=== PATIENT | male | born 1950 | race Caucasian/White ===

== ENCOUNTER 2016-12-31 07:00 | Inpatient (IN) | payer MEDICARE, OTHER ==
--- OUTSIDE RECORDS SUMMARY | 2016-12-31 09:38 | XMS REPORT | Continuity of Care Document ---
:1950 Author Organization [facility] ([facility]) Address [address] [place] [address] Phone [phone] Care Team Providers Name Role Phone Mehul Johnson Primary Care Provider [phone] Source Comments This disclosure is being made pursuant to the Care Everywhere program, applicable federal and state laws, and may not contain all informaitonavailable regarding this patient.[facility] ([facility]) Active Allergies and Adverse Reactions No Known Allergies Current Medications Prescription Sig. Disp. Refills Start Date End Date Status irbesartan (AVAPRO) 300 mg Take 300 mg by Active tablet mouth at bedtime. simvastatin 20 mg tablet Take 20 mg by Active mouth every evening. amLODIPine 10 mg tablet Take 10 mg by Active mouth daily. FUROSEMIDE 40 mg tablet 40 mg Every 04/17/2014 Active morning. METOPROLOL succinate 100 100 mg daily. 04/17/2014 Active mg XL tablet SPIRONOLACTONE 25 mg Take 25 mg by 03/29/2014 Active tablet mouth daily. metFORMIN 1,000 mg tablet Take 1,000 mg by Active mouth 2 times daily. bimatoprost (LUMIGAN) 0.01 instill 1 Drop Active % ophthalmic solution onto both eyes every evening. brimonidine 0.15 % instill 1 Drop Active ophthalmic solution onto both eyes 2 times daily. Active Problems Problem Noted Date Respiratory insufficiency following shock, trauma, or surgery 09/27/2014 Overview: Pulmonary toilet Wean oxygen as tolerated Atelectasis of both lungs 09/27/2014 Overview: Pulmonary toilet Hypertension 09/27/2014 Overview: Restart home meds monitoring Diabetes mellitus 09/27/2014 Overview: Holding metformin. On SSI. Monitoring glucoses History of smoking 09/27/2014 Overview: Quit. Monitor respiratory status. CHF (congestive heart failure) 09/27/2014 Overview: Monitoring on tele. Acute CHF due to fluid overload. Treated at local hospital. LVEF 60%. 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 MANAGER Pulse 79 10/12/2014 10:25 AM ASSISTANT MAINTENANCE MANAGER Temperature 37 C (98.6 F) 10/12/2014 10:25 AM ASSISTANT MAINTENANCE MANAGER Respiratory Rate 18 09/30/2014 8:57 AM ASSISTANT MAINTENANCE MANAGER Height 2.007 m (6' 7") 09/26/2014 4:20 PM ASSISTANT MAINTENANCE MANAGER Weight 169.6 kg (373 lb 14.4 oz) 10/12/2014 10:25 AM ASSISTANT MAINTENANCE MANAGER Body Mass Index 42.1 10/12/2014 10:25 AM ASSISTANT MAINTENANCE MANAGER Oxygen Saturation 97% 10/12/2014 10:25 AM ASSISTANT MAINTENANCE MANAGER Plan of Care Health Maintenance Due Date Last Done Comments HCV Screening 1950 Hepatitis B Vaccine (1 of 3 - Primary Series) 1950 Tdap Vaccine 1959 Diabetic: Hdl 1966 DIABETIC: Hemoglobin A1C 1966 Diabetic: Ldl 1966 DIABETIC: Microalbumin 1966 DIABETIC: Triglycerides 1966 Td Vaccine 1966 Colonoscopy 1998 Prostate Cancer Screening 1998 Zoster Vaccine 2008 Pneumococcal Vaccine (1 of 2 - PCV13) 2013 DIABETIC: Foot Exam 09/27/2014 DIABETIC: Retinal Eye Exam 09/27/2014 DIABETIC: Cholesterol 08/31/2015 08/31/2014 Influenza Vaccine: Seasonal (#1) 06/02/2016 09/02/2014 Results from Last 3 Months Not on file
[2016-12-31] MEDS ORDERED: ALBUTEROL SULFATE/IPRATROPIUM 3 ML NEBU IH PRN (09:40)
[2016-12-31 10:08] LABS: Hematocrit 40.2 % (42.0-52.0); Hemoglobin 12.9 gm/dL (13.5-18.0); Mean Corpuscular Hemoglobin 27.3 pg (27-31); Mean Corpuscular Hgb Conc 32.1 g/dl (32-36); Mean Platelet Volume 9.1 fl (6.0-9.5); Neutrophil # 8.3 K/mm3 (1.3-6.0); Platelet Count 277 K/mm3 (150-450); Red Blood Count 4.73 M/mm3 (4.7-6.0); Red Cell Distribution Width 13.5 % (11.5-14.0); White Blood Count 10.7 K/mm3 (4.0-10.5)
[2016-12-31 10:13] LABS: Urine Bilirubin Negative (NEGATIVE); Urine Blood 25 /ul (NEGATIVE); Urine Ketone Negative (NEGATIVE); Urine Nitrite Negative (NEGATIVE); Urine Protein 100 mg/dL (NEGATIVE); Urine Specific Gravity >=1.030 SP.GR. (1.005-1.030); Urine Urobilinogen Normal (NORMAL)
[2016-12-31 10:20] LABS: Urine Appearance Clear; Urine Bacteria TRACE; Urine Color Yellow; Urine RBC TRACE /hpf (0-5); Urine WBC None Seen /hpf (0-5)
[2016-12-31 10:21] LABS: Urine Fine Granular Cast 0-5 /LPF
[2016-12-31 10:27] LABS: Albumin * 3.3 gm/dl (3.4-5.0); Anion Gap 13.5 mmol/L (6.8-13.8); BUN/Creatinine Ratio 13.8 (9.0-21.6); Bilirubin, Total 0.5 mg/dL (0.0-1.1); Ca. Corrected For Albumin 8.9 mg/dL (8.4-10.2); Calcium * 8.7 mg/dL (7.9-10.9); Carbon Dioxide 24.2 mmol/L (24-32.6); Potassium 4.7 mmol/L (3.4-4.6)
[2016-12-31] MEDS: PANTOPRAZOLE SODIUM 40 MG TABLET.EC PO SCH (10:58)
[2016-12-31] MEDS: HYDROCHLOROTHIAZIDE 25 MG TABLET PO SCH (10:58)
[2016-12-31] MEDS ORDERED: ENOXAPARIN SODIUM 40 MG/0.4 ML SYRG SC SCH (11:00)
[2016-12-31] MEDS: CODEINE PHOSPHATE/GUAIFENESIN 5 ML UDC PO PRN ×2 (11:04→18:39)
[2016-12-31] MEDS: METHYLPREDNISOLONE SOD SUCC 80 MG in WATER FOR INJ.,BACTERIOSTATIC 0 ML IV SCH ×2 (13:47→18:33)
[2016-12-31] MEDS: oxyCODONE HCL/ACETAMINOPHEN 1 TAB TABLET PO PRN (18:39)
[2016-12-31] MEDS: FLUTICASONE/SALMETEROL 14 PUFF DISK.W.DEV IH SCH (20:10)
[2016-12-31] MEDS: ASPIRIN 325 MG TABLET.DR PO SCH (20:10)
[2016-12-31] MEDS: MONTELUKAST SODIUM 10 MG TABLET PO SCH (20:10)
[2016-12-31] MEDS: GABAPENTIN 300 MG CAPSULE PO SCH (20:11)
[2016-12-31] MEDS: SIMVASTATIN 20 MG TABLET PO SCH (20:11)
[2017-01-01] MEDS: METHYLPREDNISOLONE SOD SUCC 80 MG in WATER FOR INJ.,BACTERIOSTATIC 0 ML IV SCH ×5 (00:59→23:55)
[2017-01-01 06:04] LABS: Hematocrit 39.5 % (42.0-52.0); Hemoglobin 12.6 gm/dL (13.5-18.0); Mean Cell Volume 82.8 fl (78-100); Mean Corpuscular Hemoglobin 26.4 pg (27-31); Mean Corpuscular Hgb Conc 31.9 g/dl (32-36); Mean Platelet Volume 9.6 fl (6.0-9.5); Neutrophil # 13.4 K/mm3 (1.3-6.0); Neutrophil % 93.2 % (42-75.0); Platelet Count 288 K/mm3 (150-450); Red Blood Count 4.77 M/mm3 (4.7-6.0); Red Cell Distribution Width 13.2 % (11.5-14.0); White Blood Count 14.3 K/mm3 (4.0-10.5)
[2017-01-01 06:19] LABS: BUN/Creatinine Ratio 16.4 (9.0-21.6)
[2017-01-01 06:20] LABS: Albumin * 3.2 gm/dl (3.4-5.0); Anion Gap 14.1 mmol/L (6.8-13.8); Bilirubin, Total 0.3 mg/dL (0.0-1.1); Ca. Corrected For Albumin 9.3 mg/dL (8.4-10.2); Carbon Dioxide 24.4 mmol/L (24-32.6); Potassium 4.5 mmol/L (3.4-4.6); Total Protein 7.9 gm/dL (6.2-8.2)
[2017-01-01] MEDS: PANTOPRAZOLE SODIUM 40 MG TABLET.EC PO SCH (06:39)
[2017-01-01] MEDS: oxyCODONE HCL/ACETAMINOPHEN 1 TAB TABLET PO PRN (06:40)
[2017-01-01] MEDS: CODEINE PHOSPHATE/GUAIFENESIN 5 ML UDC PO PRN (06:40)
[2017-01-01] MEDS: LOSARTAN POTASSIUM 50 MG TABLET PO SCH (08:38)
[2017-01-01] MEDS: SPIRONOLACTONE 25 MG TABLET PO SCH (08:38)
[2017-01-01] MEDS: ASPIRIN 325 MG TABLET.DR PO SCH ×2 (08:38→20:46)
[2017-01-01] MEDS: FLUTICASONE/SALMETEROL 14 PUFF DISK.W.DEV IH SCH ×2 (08:38→20:46)
[2017-01-01] MEDS: METOPROLOL TARTRATE 100 MG TABLET PO SCH (08:38)
[2017-01-01] MEDS: GABAPENTIN 300 MG CAPSULE PO SCH ×2 (08:39→20:47)
[2017-01-01] MEDS: amLODIPine BESYLATE 10 MG TABLET PO SCH (08:39)
[2017-01-01] MEDS: TIOTROPIUM BROMIDE 5 CAP INHALER IH SCH (08:40)
[2017-01-01] MEDS: AZITHROMYCIN 250 MG TABLET PO SCH (08:44)
[2017-01-01] MEDS ORDERED: TIOTROPIUM BROMIDE 5 CAP INHALER IH SCH (09:00)
[2017-01-01] MEDS ORDERED: BENZONATATE 100 MG CAPSULE PO PRN (09:10)
--- NOTE | 2017-01-01 09:20 | PN ---
Subjective - Date and Time Seen Date: 01/01/17 Time: 09:15 Subjective Narrative: Frequent dry cough and shortness of breath associated with severe chest pain Objective - Review of Systems Generalized/Overall Review: Reports: Weakness EENTM: Reports: No Symptoms Reported Respiratory: Reports: Cough, Shortness of Breath Cardiac: Reports: No Symptoms Reported Abdominal: Reports: No Symptoms Reported Genitourinary Symptoms: Reports: No Symptoms Reported Musculoskeletal Complaints: Reports: No Symptoms Reported Neurological: Reports: No Symptoms Reported Skin: Reports: No Symptoms Reported - Vitals Vitals: Last Vital Signs Temp 36.9 C 01/01/17 07:43 Pulse 100 01/01/17 08:39 Resp 28 H 01/01/17 07:43 BP 141/78 01/01/17 08:39 Pulse Ox 93 01/01/17 07:43 - Abnormal Lab Findings Abnormal Lab Findings: Abnormal Lab Results 12/31/16 12/31/16 12/31/16 Range/Units 09:57 09:57 09:57 WBC 10.7 H (4.0-10.5) K/mm3 Hgb 12.9 L (13.5-18.0) gm/dL Hct 40.2 L (42.0-52.0) % MCH (27-31) pg MCHC (32-36) g/dl MPV (6.0-9.5) fl Immature Gran % (Auto) (0.001-0.429) % Immature Gran # (Auto) (0.000-0.0310) K/mm3 Neutrophils % 78.0 H (42-75.0) % Lymphocytes % 5.3 L (20-51) % Monocytes % 10.4 H (0.0-9) % Eosinophils % 5.1 H (0.0-3.0) % Neutrophils # 8.3 H (1.3-6.0) K/mm3 Lymphocytes # 0.6 L (1.5-3.5) k/mm3 Monocytes # 1.1 H (0.0-1.0) k/mm3 ESR 65 H (0-10) mm/hr pO2 (83.0-108.0) mmHg Total CO2 (19.0-24.0) mmol/L ABG O2 Sat (Measured) (94.0-98.0) % Potassium 4.7 H (3.4-4.6) mmol/L Anion Gap (6.8-13.8) mmol/L BUN (6-23) mg/dL Creatinine 1.59 H (0.4-1.4) mg/dL Est GFR (Non-Af Amer) 46 L (60-130) mL/min Random Glucose 136 H (70-110) mg/dL ALT (19-67) U/L B-Natriuretic Peptide 750 H (5-350) pg/mL Albumin 3.3 L (3.4-5.0) gm/dl Urine Protein (NEGATIVE) mg/dL Urine Blood (NEGATIVE) /ul Fine Granular Casts (NONE) /LPF 12/31/16 12/31/16 01/01/17 Range/Units 10:02 10:24 05:11 WBC 14.3 H D (4.0-10.5) K/mm3 Hgb 12.6 L (13.5-18.0) gm/dL Hct 39.5 L (42.0-52.0) % MCH 26.4 L (27-31) pg MCHC 31.9 L (32-36) g/dl MPV 9.6 H (6.0-9.5) fl Immature Gran % (Auto) 1.30 H (0.001-0.429) % Immature Gran # (Auto) 0.19 H (0.000-0.0310) K/mm3 Neutrophils % 93.2 H (42-75.0) % Lymphocytes % 3.7 L (20-51) % Monocytes % (0.0-9) % Eosinophils % (0.0-3.0) % Neutrophils # 13.4 H (1.3-6.0) K/mm3 Lymphocytes # 0.5 L (1.5-3.5) k/mm3 Monocytes # (0.0-1.0) k/mm3 ESR (0-10) mm/hr pO2 54.3 L (83.0-108.0) mmHg Total CO2 25.6 H (19.0-24.0) mmol/L ABG O2 Sat (Measured) 88.2 L (94.0-98.0) % Potassium (3.4-4.6) mmol/L Anion Gap (6.8-13.8) mmol/L BUN (6-23) mg/dL Creatinine (0.4-1.4) mg/dL Est GFR (Non-Af Amer) (60-130) mL/min Random Glucose (70-110) mg/dL ALT (19-67) U/L B-Natriuretic Peptide (5-350) pg/mL Albumin (3.4-5.0) gm/dl Urine Protein 100 H (NEGATIVE) mg/dL Urine Blood 25 H (NEGATIVE) /ul Fine Granular Casts 0-5 H (NONE) /LPF 01/01/17 01/01/17 01/01/17 Range/Units 05:11 05:11 05:11 WBC (4.0-10.5) K/mm3 Hgb (13.5-18.0) gm/dL Hct (42.0-52.0) % MCH (27-31) pg MCHC (32-36) g/dl MPV (6.0-9.5) fl Immature Gran % (Auto) (0.001-0.429) % Immature Gran # (Auto) (0.000-0.0310) K/mm3 Neutrophils % (42-75.0) % Lymphocytes % (20-51) % Monocytes % (0.0-9) % Eosinophils % (0.0-3.0) % Neutrophils # (1.3-6.0) K/mm3 Lymphocytes # (1.5-3.5) k/mm3 Monocytes # (0.0-1.0) k/mm3 ESR 52 H (0-10) mm/hr pO2 (83.0-108.0) mmHg Total CO2 (19.0-24.0) mmol/L ABG O2 Sat (Measured) (94.0-98.0) % Potassium (3.4-4.6) mmol/L Anion Gap 14.1 H (6.8-13.8) mmol/L BUN 24 H (6-23) mg/dL Creatinine 1.46 H (0.4-1.4) mg/dL Est GFR (Non-Af Amer) 51 L (60-130) mL/min Random Glucose 202 H D (70-110) mg/dL ALT 18 L (19-67) U/L B-Natriuretic Peptide 2598 H (5-350) pg/mL Albumin 3.2 L (3.4-5.0) gm/dl Urine Protein (NEGATIVE) mg/dL Urine Blood (NEGATIVE) /ul Fine Granular Casts (NONE) /LPF - Exam Constitutional: Present: Alert, Oriented x3, Cooperative Respiratory: Present: crackles Cardiovascular/Chest: Present: regular rate, rhythm, systolic murmur Abdomen: Present: soft, nontender Extremity: Present: no pedal edema Skin Exam: Present: normal color Neurologic: 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: 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-XII nml as tested Appearance: Present: appropriate appearance Assessment/Plan - Problems/Diagnosis (1) Congestive heart failure (CHF) Problem: Acute Narrative: Chest x-ray showed mild increase in right pleural effusion BNP has increased from 800 to 2000 I will give him 80 mg of IV Lasix (2) COPD (chronic obstructive pulmonary disease) Problem: Chronic Narrative: Will continue IV antibiotic and Solu-Medrol (3) Thymus cancer Problem: Acute Narrative: Recurrence of the thymus cancer with lung metastasis and pleural effusion Case discussed with the patient and his oncologist will proceed with thoracentesis
[2017-01-01] MEDS ORDERED: FUROSEMIDE 10 MG/ML VIAL IV ONE (09:40)
[2017-01-01 09:54] LABS: INR 0.98 INR (0.90-1.10); Prothrombin Time (Patient) 10.2 Seconds (9.4-11.4)
[2017-01-01] MEDS: HYDROCHLOROTHIAZIDE 25 MG TABLET PO SCH (10:38)
[2017-01-01] MEDS: NYSTATIN 15 APPL BTL TP SCH ×2 (16:40→20:46)
[2017-01-01] MEDS: NYSTATIN 30 APPL TUBE TP SCH ×2 (16:40→20:46)
[2017-01-01] MEDS: MONTELUKAST SODIUM 10 MG TABLET PO SCH (20:47)
[2017-01-01] MEDS: SIMVASTATIN 20 MG TABLET PO SCH (20:47)
[2017-01-01] MEDS ORDERED: PHENOL 180 SPRAY BTL MM PRN (23:37)
[2017-01-02 06:09] LABS: Hematocrit 37.8 % (42.0-52.0); Hemoglobin 12.1 gm/dL (13.5-18.0); Mean Cell Volume 82.9 fl (78-100); Mean Corpuscular Hemoglobin 26.5 pg (27-31); Mean Platelet Volume 9.8 fl (6.0-9.5); Platelet Count 312 K/mm3 (150-450); Red Blood Count 4.56 M/mm3 (4.7-6.0); Red Cell Distribution Width 13.2 % (11.5-14.0); White Blood Count 27.4 K/mm3 (4.0-10.5)
[2017-01-02 06:11] LABS: Total Cells Counted 100
[2017-01-02 06:14] LABS: Prothrombin Time (Patient) 10.4 Seconds (9.4-11.4)
[2017-01-02 06:23] LABS: Anion Gap 13.9 mmol/L (6.8-13.8); BUN/Creatinine Ratio 24.7 (9.0-21.6); Bilirubin, Total 0.3 mg/dL (0.0-1.1); Ca. Corrected For Albumin 9.3 mg/dL (8.4-10.2); Calcium * 8.8 mg/dL (7.9-10.9); Carbon Dioxide 25.1 mmol/L (24-32.6); Total Protein 7.4 gm/dL (6.2-8.2)
[2017-01-02 06:30] LABS: Band 8 % (0-2.0); Lymphocyte 4 % (20-51); Monocyte 2 % (0-9); Neutrophil 86 % (42-75); Neutrophil # 23.6 K/mm3 (1.3-6.0)
[2017-01-02 06:31] LABS: Platelet Estimate Normal (NORMAL); RBC Morphology Normal (NORMAL)
[2017-01-02] MEDS: METHYLPREDNISOLONE SOD SUCC 80 MG in WATER FOR INJ.,BACTERIOSTATIC 0 ML IV SCH ×2 (06:37→12:56)
[2017-01-02] MEDS: PANTOPRAZOLE SODIUM 40 MG TABLET.EC PO SCH (06:37)
[2017-01-02] MEDS: NYSTATIN 15 APPL BTL TP SCH ×2 (08:42→21:44)
[2017-01-02] MEDS: NYSTATIN 30 APPL TUBE TP SCH ×2 (08:42→21:44)
[2017-01-02] MEDS: ASPIRIN 325 MG TABLET.DR PO SCH ×2 (08:43→21:44)
[2017-01-02] MEDS: SPIRONOLACTONE 25 MG TABLET PO SCH (08:43)
[2017-01-02] MEDS: AZITHROMYCIN 250 MG TABLET PO SCH (08:43)
[2017-01-02] MEDS: GABAPENTIN 300 MG CAPSULE PO SCH ×2 (08:43→21:45)
[2017-01-02] MEDS: LOSARTAN POTASSIUM 50 MG TABLET PO SCH (08:44)
[2017-01-02] MEDS: METOPROLOL TARTRATE 100 MG TABLET PO SCH (08:44)
[2017-01-02] MEDS: amLODIPine BESYLATE 10 MG TABLET PO SCH (08:44)
[2017-01-02] MEDS: TIOTROPIUM BROMIDE 5 CAP INHALER IH SCH (08:46)
[2017-01-02] MEDS: FLUTICASONE/SALMETEROL 14 PUFF DISK.W.DEV IH SCH ×2 (08:47→21:43)
[2017-01-02] MEDS: HYDROCHLOROTHIAZIDE 25 MG TABLET PO SCH (11:21)
--- NOTE | 2017-01-02 18:28 | PN ---
Subjective - Date and Time Seen Date: 01/02/17 Time: 18:27 Subjective Narrative: feels better, less SOB, cough improved after thoracentesis. denies sputum production. Objective - Review of Systems Generalized/Overall Review: Denies: Weakness, Chills, Fever Respiratory: Reports: Cough, Shortness of Breath. Denies: Wheezing Cardiac: Denies: Chest Pain, Edema, Palpitations Abdominal: Denies: Nausea, Vomiting - Vitals Vitals: Last Vital Signs Temp 36.4 C L 01/02/17 14:38 Pulse 77 01/02/17 14:38 Resp 20 01/02/17 14:38 BP 127/67 01/02/17 14:38 Pulse Ox 91 01/02/17 14:38 - Abnormal Lab Findings Abnormal Lab Findings: Laboratory Tests 01/02/17 06:00 WBC 27.4 H D Hgb 12.1 L Hct 37.8 L Plt Count 312 Neutrophils % (Manual) 86 H Band Neuts % (Manual) 8 H 01/02/17 05:02 Plasma Sodium 136 Potassium 4.0 Chloride 99 Carbon Dioxide 25.1 BUN 39 H D Creatinine 1.58 H Est GFR (Non-Af Amer) 47 L Random Glucose 198 H Calcium Adj for Albumin 9.3 Total Bilirubin 0.3 AST 15 ALT 17 L Alkaline Phosphatase 87 Lactate Dehydrogenase 153 Total Protein 7.4 Albumin 3.0 L - EKG/Xray Findings Interpretation: Reviewed by me - Exam Constitutional: Present: Middle aged - in no NAD on O2, alert and oriented., Morbidly obese ENT Exam: Present: hearing grossly normal, moist mucous membranes Neck: Present: normal inspection, trachea midline Respiratory: Present: no respiratory distress, no accessory muscle use, decreased breath sounds, rhonchi Cardiovascular/Chest: Present: regular rate, rhythm. Absent: tachycardia Abdomen: Present: Normal bowel sounds, soft, nontender, obese Extremity: Present: normal inspection, no pedal edema Skin Exam: Present: normal color, warm/dry Eye contact: Present: cooperative, good eye contact, normal speech Assessment/Plan Plan Narrative: 1. RT sided pleural effusion: Patient feels his breathing and shortness of breath have significantly improved after thoracentesis was done on 01/01/2017. Approximately 700 mL taken out. Findings c/w exudate. 2. Thymoma: with metastatic disease. 3. COPD: On solumedrol IV and antibiotics. 4. Chronic medical conditions: Chronic medical conditions including HTN, HLD,T2DM, O2 at HS [KATI] obesity [BMI 40.0] reviewed and stable
[2017-01-02] MEDS: METHYLPREDNISOLONE SOD SUCC 60 MG in WATER FOR INJ.,BACTERIOSTATIC 0 ML IV SCH (18:49)
[2017-01-02] MEDS ORDERED: SENNOSIDES 8.6 MG TABLET PO SCH (21:00)
[2017-01-02] MEDS: SIMVASTATIN 20 MG TABLET PO SCH (21:45)
[2017-01-02] MEDS: MONTELUKAST SODIUM 10 MG TABLET PO SCH (21:45)
[2017-01-03] MEDS: METHYLPREDNISOLONE SOD SUCC 60 MG in WATER FOR INJ.,BACTERIOSTATIC 0 ML IV SCH ×3 (02:03→13:16)
[2017-01-03] MEDS: PANTOPRAZOLE SODIUM 40 MG TABLET.EC PO SCH (06:38)
[2017-01-03] MEDS: METOPROLOL TARTRATE 100 MG TABLET PO SCH (09:41)
[2017-01-03] MEDS: LOSARTAN POTASSIUM 50 MG TABLET PO SCH (09:41)
[2017-01-03] MEDS: AZITHROMYCIN 250 MG TABLET PO SCH (09:41)
[2017-01-03] MEDS: amLODIPine BESYLATE 10 MG TABLET PO SCH (09:42)
[2017-01-03] MEDS: SPIRONOLACTONE 25 MG TABLET PO SCH (09:42)
[2017-01-03] MEDS: FLUTICASONE/SALMETEROL 14 PUFF DISK.W.DEV IH SCH (09:42)
[2017-01-03] MEDS: NYSTATIN 30 APPL TUBE TP SCH (09:42)
[2017-01-03] MEDS: GABAPENTIN 300 MG CAPSULE PO SCH (09:42)
[2017-01-03] MEDS: ASPIRIN 325 MG TABLET.DR PO SCH (09:42)
[2017-01-03] MEDS: TIOTROPIUM BROMIDE 5 CAP INHALER IH SCH (09:42)
[2017-01-03] MEDS: NYSTATIN 15 APPL BTL TP SCH (09:43)
[2017-01-03] MEDS: HYDROCHLOROTHIAZIDE 25 MG TABLET PO SCH (10:47)
[2017-01-03 11:34] VITALS: BP 137/77
--- NOTE | 2017-01-03 13:46 | DS ---
(1) (HFpEF) heart failure with preserved ejection fraction Problem: Acute (2) RT lung airspace disease/atectasis Problem: Acute (3) Hypertension Problem: Chronic Qualifiers: Hypertension type: essential hypertension Qualified Code(s): I10 - Essential (primary) hypertension (4) Osteoarthritis Problem: Chronic (5) Malignant thymoma Diagnosis(s): Metastatic disease. Problem: Chronic Description of Stay: DATE OF ADMISSION: 12/31/2016. DATE OF DISCHARGE: 01/03/2017. DIAGNOSTICS: CT CHEST W/O 12/31/2016. HOSPITAL COURSE: Elijah Mesa is a 66-year-old WM with a H/O HTN, HLD, COPD on 2 L at HS, malignant thymoma [2014] who was admitted to the office because of productive cough, chills, RT sided pleuritic chest pain, difficulty in breathing, wheezing and using oxygen during the day due to shortness of breath since 12/27/2016. CXR showed possible new 1.9 cm nodular obesity projecting over the RT mid lung field which could represent small pneumonia versus neoplastic nodule. Other findings include stable small RT sided pleural effusion, stable RT basilar pulmonary opacities suggestive of either atelectasis/pneumonia, stable cardiomegaly, stable peripheral markings suggestive of interstitial edema/ pneumonitis. Patient was given furosemide 80 mg IV due to BNP of 2000 with some improvement. He was also started on Solu-Medrol 60 mg IV Q6H and antibiotics [ceftriaxone 1 g IV daily and azithromycin 250 mg PO daily] for exacerbation of COPD. Patient underwent ultrasound-guided thoracentesis RT pleural effusion with removal of 700 mL of pleural fluid with improvement in symptoms and cough. Fluid was exudative in nature and no malignant cells were found in the pleural fluid. Patient was weaned off oxygen and switched over to oral prednisone on 2016. He was able to ambulate w/o and was asymptomatic. He was discharged in a stable condition on a tapering dose of oral prednisone and on oral antibiotics with a follow-up with his PCP in 7-14 days. A total of 50 minutes was spent with the patient discussing plan of care, discharge planning, reconciliation of medications, preparation and dictating discharge summary. Procedures Performed: see notes below - US guided thoracentesis pleural fluid - [ 700 ml]. Results and Findings: Laboratory Tests 12/31/16 01/01/1701/02/17 09:57 05:11 06:00 WBC 10.7 H 14.3 H D 27.4 H D Hgb 12.9 L 12.6 L 12.1 L Hct 40.2 L 39.5 L 37.8 L Plt Count 277 288 312 Neutrophils % (Manual) 86 H Band Neuts % (Manual) 8 H Laboratory Tests 12/31/16 01/01/17 01/02/17 09:57 05:11 05:02 Plasma Sodium 137 136 136 Potassium 4.7 H 4.5 4.0 Chloride 103 100 99 Carbon Dioxide 24.2 24.4 25.1 BUN 22 24 H 39 Creatinine 1.59 H 1.46 H 1.58 Est GFR (Non-Af Amer) 46 L 51 L 47 Random Glucose 136 H 202 H D 198 Calcium Adj for Albumin 8.9 9.3 9.3 Total Bilirubin 0.5 0.3 0.3 AST 23 18 15 ALT 22 18 L 17 Alkaline Phosphatase 107 101 87 B-Natriuretic Peptide 750 H 2598 LDH 153 procalcitonin 0.18 CXR: PA LATERAL: 12/31/2016: 09:40: 1. Newly apparent 1.9 cm nodular opacity projecting over the right mid lung zone. Could represent small pneumonia versus neoplastic nodule recommend radiographic follow-up to document resolution. Chest CT could be considered in a routine basis unless otherwise indicated. 2. Stable small right-sided pleural effusion. Stable right basilar pulmonary opacities suggestive of either atelectasis or pneumonia. 3. Stable increase partial lung markings. Correlate clinically for interstitial edema versus pneumonitis. 4. Stable cardiomegaly. CT CHEST W/O CONTRAST 12/31/2016: 11:17: 1. Multiple RT sided pleural based masses, predominantly located near the RT lung base, small right-sided pleural effusion, and potential pseudomass versus pleural based mass in the right major fissure concerning for possible pleural based metastases. 2. Soft tissue abnormality of the anterior mediastinum concerning for potential recurrence of thymic tumor. 3. Right-sided epicardial lymphadenopathy concerning for metastatic disease. 4. Other findings: bilateral gynecomastia, multiple calcified gallstones, multiple cystic lesions of the left kidney, median sternotomy wires and plate and screw fixation of the previously performed median sternotomy are present. Discharge Disposition: Home self care Disposition: Home self-care Condition: Undetermined Discharge Activity: Activity as tolerated Discharge Diet: Low salt, Low fat/chol, High Fiber Referrals: Mehul Johnson MD [Primary Care Provider] - Problem Oriented Discharge Instructions to Patient/Family: Heart Failure, Easy- to-Read Additional Patient Instructions (free text): Medication changes: Regular Aspirin changed to baby ASA 81 mg daily. Take Vitamin D3 5000 units daily with food. lopressor 200 mg daily has been changed to 100 mg twice a day. prednisone - tapering dose. Water pills at 11: 00 AM. ibesartan 300 mg and lopressor 100 mg in AM amlodipine 10 mg and lopressor 100 mg in PM . can take generic Robutussin DM 5-10 ml every 6 hours for cough. Appt with Dr. Johnson in 7-10 days. Prescriptions (Any new or edited meds): Aspirin [Aspirin EC] 81 mg PO DAILY #30 tablet. Azithromycin [Zithromax] 500 mg PO DAILY #3 tab Cholecalciferol (Vitamin D3) [Vitamin D3] 5,000 unit PO DAILY #100 tablet Metoprolol Tartrate [Lopressor] 100 mg PO BID #.1 tablet Phenol [Chloraseptic] 1 spray MM PRN PRN #.1 btl PRN Reason: Sore Throat Spironolactone [Aldactone] 25 mg PO DAILY@1100 #30 tablet amLODIPine BESYLATE [Norvasc] 10 mg PO DAILY@2100 #.1 tablet predniSONE [Prednisone] 20 mg PO DAILY #12 tablet Complete Home Medications List: Complete Home Medication List: Simvastatin [Zocor] 20 mg PO HS 06/03/13 Irbesartan [Avapro] 300 mg PO DAILY 12/04/14 Hydrochlorothiazide [Hydrodiuril] 25 mg PO DAILY@1100 #90 tablet 01/09/15 Albuterol Sulfate [Ventolin HFA] 1 - 2 puff IH Q6H PRN 09/16/16 Gabapentin [Neurontin] 300 mg PO BID 09/16/16 Montelukast Sodium [Singulair] 10 mg PO HS 09/16/16 Tiotropium Grimes [Spiriva] 1 cap IH DAILY 09/16/16 Budesonide/Formoterol Fumarate [Symbicort 160-4.5 Mcg Inhaler] 2 puff IH BID Aspirin [Aspirin EC] 81 mg PO DAILY #30 tablet. 01/03/17 Azithromycin [Zithromax] 500 mg PO DAILY #3 tab 01/03/17 Cholecalciferol (Vitamin D3) [Vitamin D3] 5,000 unit PO DAILY #100 tablet Metoprolol Tartrate [Lopressor] 100 mg PO BID #.1 tablet 01/03/17 Phenol [Chloraseptic] 1 spray MM PRN PRN #.1 btl 01/03/17 Spironolactone [Aldactone] 25 mg PO DAILY@1100 #30 tablet 01/03/17 amLODIPine BESYLATE [Norvasc] 10 mg PO DAILY@2100 #.1 tablet 01/03/17 predniSONE [Prednisone] 20 mg PO DAILY #12 tablet 01/03/17
[2017-01-03] MEDS ORDERED: predniSONE 20 MG TABLET PO ONE (14:00)
== END 2017-01-03 15:22 | disposition home or self-care (01) | DRG 190 ==
LOC: MS 07:00 → OBSVTOIN 01-01 07:00
PROVIDERS: ADMIT Internal Medicine; ATTEND Internal Medicine
PROC: 4A033R1 Measurement of Arterial Saturation, Peripheral, Percutaneous Approach (ICD-10-PCS; 2016-12-31)
PROC: 0W993ZX Drainage of Right Pleural Cavity, Percutaneous Approach, Diagnostic (ICD-10-PCS; principal; 2017-01-01)
DX: J44.1 Chronic obstructive pulmonary disease with (acute) exacerbation (principal); I50.31 Acute diastolic (congestive) heart failure; C37 Malignant neoplasm of thymus; C78.01 Secondary malignant neoplasm of right lung; J90 Pleural effusion, not elsewhere classified; J98.11 Atelectasis; I10 Essential (primary) hypertension; E78.5 Hyperlipidemia, unspecified; E11.9 Type 2 diabetes mellitus without complications; Z87.891 Personal history of nicotine dependence; Z79.82 Long term (current) use of aspirin
CPT/HCPCS: 32555; 36415; 36600; 71010; 71020; 71250; 76942; 80053; 81001; 82042; 82803; 83615; 83880; 83986; 84145; 84157; 85007; 85025; 85610; 85652; 85730; 87070; 88108; 88305; 94640; G0378; G0379

== ENCOUNTER 2017-03-26 08:39 | Observation (INO) | payer MEDICARE, OTHER ==
--- OUTSIDE RECORDS SUMMARY | 2017-03-26 08:43 | XMS REPORT | Continuity of Care Document ---
:1950 Author Organization [facility] ([facility]) Address [address] [place] [address] Phone [phone] Care Team Providers Name Role Phone Mehul Johnson Primary Care Provider [phone] Source Comments This disclosure is being made pursuant to the Care Everywhere program, applicable federal and state laws, and may not contain all informaitonavailable regarding this patient.[facility] ([facility]) Active Allergies and Adverse Reactions No Known [...] Taken Blood Pressure 166/90 10/12/2014 10:25 AM ACADEMIC SPECIALIST Pulse 79 10/12/2014 10:25 AM ACADEMIC SPECIALIST Temperature 37 C (98.6 F) 10/12/2014 10:25 AM ACADEMIC SPECIALIST Respiratory Rate 18 09/30/2014 8:57 AM ACADEMIC SPECIALIST Height 2.007 m (6' 7") 09/26/2014 4:20 PM ACADEMIC SPECIALIST Weight 169.6 kg (373 lb 14.4 oz) 10/12/2014 10:25 AM ACADEMIC SPECIALIST Body Mass Index 42.1 10/12/2014 10:25 AM ACADEMIC SPECIALIST Oxygen Saturation 97% 10/12/2014 10:25 AM ACADEMIC SPECIALIST Plan of Care Health Maintenance Due Date [...] DIABETIC: Cholesterol 08/31/2015 08/31/2014 Influenza Vaccine: Seasonal Completed 09/02/2014 Results from Last 3 Months Not on file
[2017-03-26 08:59] LABS: Hematocrit 33.3 % (42.0-52.0); Hemoglobin 10.6 gm/dL (13.5-18.0); Mean Cell Volume 83.9 fl (78-100); Mean Corpuscular Hemoglobin 26.7 pg (27-31); Mean Corpuscular Hgb Conc 31.8 g/dl (32-36); Mean Platelet Volume 9.8 fl (6.0-9.5); Platelet Count 203 K/mm3 (150-450); Red Blood Count 3.97 M/mm3 (4.7-6.0); Red Cell Distribution Width 17.1 % (11.5-14.0); White Blood Count 3.6 K/mm3 (4.0-10.5)
[2017-03-26 09:02] LABS: Total Cells Counted 100
[2017-03-26 09:16] LABS: Band 1 % (0-2.0); Eosinophil 13 % (0-3); Hypersegmented Polys 2+; Immature Granulocyte 3 (0-1); Lymphocyte 27 % (20-51); Macrocytosis 1+; Monocyte 2 % (0-9); Neutrophil 54 % (42-75); Neutrophil # 1.9 K/mm3 (1.3-6.0)
[2017-03-26 09:18] LABS: Platelet Estimate Normal (NORMAL)
[2017-03-26 09:20] LABS: Albumin * 2.7 gm/dl (3.4-5.0); Anion Gap 14.1 mmol/L (6.8-13.8); BUN/Creatinine Ratio 19.8 (9.0-21.6); Bilirubin, Total 0.8 mg/dL (0.0-1.1); Ca. Corrected For Albumin 9.4 mg/dL (8.4-10.2); Calcium * 8.7 mg/dL (7.9-10.9); Carbon Dioxide 24.9 mmol/L (24-32.6); Total Protein 6.5 gm/dL (6.2-8.2)
--- OUTSIDE RECORDS SUMMARY | 2017-03-26 09:58 | XMS REPORT | Continuity of Care Document ---
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
[2017-03-26] MEDS: FLUTICASONE/SALMETEROL 14 PUFF DISK.W.DEV IH SCH ×2 (12:02→20:24)
[2017-03-26] MEDS: 0.5 NORMAL SALINE 1,000 ML IV PRN ×2 (16:05→20:25)
[2017-03-26] MEDS: GABAPENTIN 300 MG CAPSULE PO SCH (20:24)
[2017-03-26] MEDS: CALCIUM CARBONATE 500 MG TAB.CHEW PO PRN (23:56)
[2017-03-27] MEDS: CALCIUM CARBONATE 500 MG TAB.CHEW PO PRN (01:09)
[2017-03-27] MEDS ORDERED: ACETAMINOPHEN 325 MG TABLET PO PRN (02:22)
[2017-03-27] MEDS: ONDANSETRON HCL/PF 2 MG/ML VIAL IV PRN ×2 (02:27→09:42)
[2017-03-27] MEDS: 0.5 NORMAL SALINE 1,000 ML IV PRN (02:35)
[2017-03-27 02:44] LABS: Hemoglobin 9.7 gm/dL (13.5-18.0); Mean Cell Volume 82.9 fl (78-100); Mean Corpuscular Hemoglobin 26.8 pg (27-31); Mean Corpuscular Hgb Conc 32.3 g/dl (32-36); Mean Platelet Volume 9.6 fl (6.0-9.5); Neutrophil # 1.6 K/mm3 (1.3-6.0); Neutrophil % 57.6 % (42-75.0); Platelet Count 148 K/mm3 (150-450); Red Blood Count 3.62 M/mm3 (4.7-6.0); Red Cell Distribution Width 16.7 % (11.5-14.0); White Blood Count 2.7 K/mm3 (4.0-10.5)
[2017-03-27 03:06] LABS: Albumin * 2.4 gm/dl (3.4-5.0); Anion Gap 12.6 mmol/L (6.8-13.8); BUN/Creatinine Ratio 21.3 (9.0-21.6); Bilirubin, Total 0.4 mg/dL (0.0-1.1); Ca. Corrected For Albumin 9.4 mg/dL (8.4-10.2); Calcium * 8.4 mg/dL (7.9-10.9); Carbon Dioxide 27.3 mmol/L (24-32.6); Potassium 4.9 mmol/L (3.4-4.6); Total Protein 5.9 gm/dL (6.2-8.2)
[2017-03-27 03:21] LABS: Urine Appearance Clear; Urine Bacteria None Seen; Urine Bilirubin Negative (NEGATIVE); Urine Blood 25 /ul (NEGATIVE); Urine Color Pale Yellow; Urine Ketone Negative (NEGATIVE); Urine Nitrite Negative (NEGATIVE); Urine Protein Negative (NEGATIVE); Urine RBC 0-5 /hpf (0-5); Urine Specific Gravity <=1.005 SP.GR. (1.005-1.030); Urine Urobilinogen Normal (NORMAL); Urine WBC 0-5 /hpf (0-5)
[2017-03-27] MEDS ORDERED: traMADol HCL 50 MG TABLET PO PRN (08:19)
[2017-03-27] MEDS ORDERED: NON-FORMULARY 1 DOSE DOSE (Acetaminophen 650 MG) PO PRN (08:19)
[2017-03-27] MEDS ORDERED: PANTOPRAZOLE SODIUM 40 MG TABLET.EC PO STA (08:20)
[2017-03-27] MEDS: FLUTICASONE/SALMETEROL 14 PUFF DISK.W.DEV IH SCH (08:23)
[2017-03-27] MEDS: GABAPENTIN 300 MG CAPSULE PO SCH (08:24)
[2017-03-27] MEDS ORDERED: BENZONATATE 100 MG CAPSULE PO PRN (08:29)
--- NOTE | 2017-03-27 08:35 | DS ---
(1) Dehydration Problem: Acute (2) Thymus cancer Problem: Acute Description of Stay: 66-year-old white male known to have time was cancer with metastases undergoing chemotherapy was admitted because of weakness dehydration and hypotension. He was started on IV fluid. Blood pressure went up to normal with IV. fluid. He will be discharged and will follow up in my office in one week and follow-up with oncology Procedures Performed: none Discharge Disposition: Home self care Disposition: Home self-care Condition: Fair Discharge Activity: Activity as tolerated Discharge Diet: Consistent carbs Referrals: Mehul Johnson MD [Primary Care Provider] - Additional Patient Instructions (free text): 1 week follow up with Dr. Johnson Continue to follow up with his oncologist Prescriptions (Any new or edited meds): Benzonatate [Tessalon] 200 mg PO TID PRN #30 capsule PRN Reason: Cough Complete Home Medications List: Complete Home Medication List: Simvastatin [Zocor] 20 mg PO HS 06/03/13 Irbesartan [Avapro] 300 mg PO DAILY 12/04/14 Gabapentin [Neurontin] 300 mg PO BID 09/16/16 Montelukast Sodium [Singulair] 10 mg PO HS 09/16/16 Budesonide/Formoterol Fumarate [Symbicort 160-4.5 Mcg Inhaler] 2 puff IH BID Aspirin [Aspirin EC] 81 mg PO DAILY #30 tablet. 01/03/17 Cholecalciferol (Vitamin D3) [Vitamin D3] 5,000 unit PO DAILY #100 tablet Metoprolol Tartrate [Lopressor] 100 mg PO BID #.1 tablet 01/03/17 Acetaminophen [Tylenol] 650 mg PO Q6H PRN 03/26/17 Albuterol Sulfate [Albuterol Sulfate 2.5 MG/3 ML] 1.25 mg IH QID 03/26/17 Folic Acid 1 mg PO DAILY 03/26/17 traMADol HCL [Ultram] 50 mg PO Q4H PRN 03/26/17 Acetaminophen [Tylenol] 650 mg PO Q4H PRN #0 tablet 03/27/17 Benzonatate [Tessalon] 200 mg PO TID PRN #30 capsule 03/27/17 Calcium Carbonate [Tums] 500 mg PO QID PRN #0 tab.chew 03/27/17
[2017-03-27] MEDS ORDERED: CHOLECALCIFEROL 5,000 UNIT TABLET PO SCH (09:00)
[2017-03-27] MEDS ORDERED: ASPIRIN 81 MG TABLET.DR PO SCH (09:00)
[2017-03-27] MEDS ORDERED: LOSARTAN POTASSIUM 50 MG TABLET PO SCH (09:00)
[2017-03-27] MEDS ORDERED: FOLIC ACID 1 MG TABLET PO SCH (09:00)
[2017-03-27] MEDS ORDERED: METOPROLOL TARTRATE 100 MG TABLET PO SCH (09:00)
[2017-03-27] MEDS: ALBUTEROL SULFATE 2.5 MG/3 ML VIAL.NEB IH SCH ×2 (09:12→11:14)
[2017-03-27 10:22] VITALS: BP 117/65
== END 2017-03-27 14:00 | disposition home or self-care (01) ==
LOC: LAB 08:39 → MS 09:49
PROVIDERS: ADMIT Internal Medicine; ATTEND Internal Medicine
DX: E86.0 Dehydration (principal); I95.1 Orthostatic hypotension; T45.1X5A Adverse effect of antineoplastic and immunosuppressive drugs, initial encounter; R53.1 Weakness; E11.65 Type 2 diabetes mellitus with hyperglycemia; J44.9 Chronic obstructive pulmonary disease, unspecified; R05 Cough; C79.9 Secondary malignant neoplasm of unspecified site; I12.9 Hypertensive chronic kidney disease with stage 1 through stage 4 chronic kidney disease, or unspecified chronic kidney disease; N18.9 Chronic kidney disease, unspecified; Z87.891 Personal history of nicotine dependence
CPT/HCPCS: 36415; 71010; 71020; 80053; 81001; 83605; 83880; 84145; 85025; 85652; 87040; 93005; 94640; 96361; 96374; 96376; G0378; G0379; J2405

== ENCOUNTER 2017-07-01 16:29 | Inpatient (IN) | payer MEDICARE, OTHER ==
[2017-07-01] MEDS ORDERED: FUROSEMIDE 10 MG/ML VIAL IV ONE (16:54)
[2017-07-01] MEDS ORDERED: FUROSEMIDE 10 MG/ML VIAL ONE (16:54)
[2017-07-01] MEDS ORDERED: ALBUTEROL SULFATE/IPRATROPIUM 3 ML NEBU IH ONE ×2 (17:00→17:01)
--- NOTE | 2017-07-01 17:07 | ERNOTE ---
Dyspnea - General Presenting Symptoms: shortness of breath Time Seen by Provider: 07/01/17 16:34 Source: patient Exam Limitations: no limitations - Immun/Allergies/Home Medications Immunizations: IMMUNIZATION HX Immunizations Up to Date Yes History of Influenza Vaccine Yes Hx Pneumococcal Vaccination Yes Allergies/Adverse Reactions: Allergies No Known Allergies Allergy (Verified 07/01/17 16:40) Home Medications: HOME MEDICATIONS Simvastatin [Zocor] 20 mg PO HS 06/03/13 [Last Taken Unknown] Irbesartan [Avapro] 300 mg PO DAILY 12/04/14 [Last Taken Unknown] Gabapentin [Neurontin] 300 mg PO BID 09/16/16 [Last Taken Unknown] Budesonide/Formoterol Fumarate [Symbicort 160-4.5 Mcg Inhaler] 2 puff IH BID [Last Taken Unknown] Aspirin [Aspirin EC] 81 mg PO DAILY #30 tablet. 01/03/17 [Last Taken Unknown] Cholecalciferol (Vitamin D3) [Vitamin D3] 5,000 unit PO DAILY #100 tablet [Last Taken Unknown] Metoprolol Tartrate [Lopressor] 100 mg PO BID #.1 tablet 01/03/17 [Last Taken Unknown] Acetaminophen [Tylenol] 650 mg PO Q6H PRN 03/26/17 [Last Taken Unknown] Albuterol Sulfate [Albuterol Sulfate 2.5 MG/3 ML] 1.25 mg IH QID 03/26/17 [Last Taken Unknown] Folic Acid 1 mg PO DAILY 03/26/17 [Last Taken Unknown] traMADol HCL [Ultram] 50 mg PO Q4H PRN 03/26/17 [Last Taken Unknown] Amlodipine Besylate 10 mg PO DAILY 07/01/17 [Last Taken Unknown] Dexamethasone 4 mg PO BID 07/01/17 [Last Taken Unknown] Ferrous Sulfate [Iron] 325 mg PO DAILY 07/01/17 [Last Taken Unknown] Hydrochlorothiazide [Hydrodiuril] 25 mg PO DAILY 07/01/17 [Last Taken Unknown] Montelukast Sodium [Singulair] 10 mg PO DAILY 07/01/17 [Last Taken Unknown] Spironolactone [Aldactone] 25 mg PO DAILY 07/01/17 [Last Taken Unknown] - History of Present Illness Narrative: Patient presents with increasing shortness of breath over the last 10-12 days. He also states that he has significant swelling in both lower extremities, which is new for him and increased wheezing. He rates his symptoms as moderate in intensity. Severity: moderate Treatment WAITER/[employer]ESS [employer] CLASS: by patient Initiating event: Reports: other - possibly receiving chemotherapy which could' ve dropped his hemoglobin from 10 to 8 Modifying Factors - (Improves): Reports: albuterol, rest Modifying Factors (Worsens): Reports: activity Associated Symptoms-Dyspnea: Reports: other - increased edema both lower extremities Review of Systems - Review of Systems Constitutional: Present: See HPI EYE: Present: no symptoms reported ENT: Present: no symptoms reported Respiratory: Present: shortness of breath, wheezing Cardiology: Present: palpitations, edema Gastrointestinal/Abdominal: Present: no symptoms reported Genitourinary: Present: no symptoms reported Musculoskeletal: Present: no symptoms reported Skin: Present: no symptoms reported Neurological: Present: no symptoms reported Endocrine: Present: no symptoms reported Hematologic/Lymphatic: Present: no symptoms reported Psych: Present: no symptoms reported - Patient's Past Medical History Patient History - Medical: Arthritis, Diabetes Type 2, Renal Disease, Other - lung cancer Patient History - Cardiac/Respiratory: CHF, COPD, Hypertension, Hyperlipidemia, Home O2 Use Patient History - Cancer: Lung, Thyroid Patient History - Surgical Procedures: Cataracts, Total Hip Replacement Patient History - Other: None - Family History Mother Family History - Medical: Family History - Cardiac/Respiratory: No pertinent hx Family History - Cancer: No pertinent family hx Father Family History - Medical: History Unknown Family History - Cardiac/Respiratory: History Unknown Family History - Cancer: History Unknown - Social History Living Situations: home Abuse History: No History of abuse Psych History: No pertinent hx Smoking Status: Former smoker Alcohol Use: none Drug Use: none - Immunizations Immunizations Up to Date: Yes Hx Pneumococcal Vaccination: Yes History of Influenza Vaccine: Yes Physical Exam - Physical Exam General Appearance: Present: wd/wn, alert, moderate distress Head Exam: Present: normal inspection Eye Exam: Normal inspection: bilateral, PERRL: bilateral Ears, Nose, Throat: Present: normal ENT inspection, H, normal pharynx Neck: Present: normal inspection, nontender Respiratory: Present: no accessory muscle use, chest nontender, wheezing Cardiovascular/Chest: Present: no murmur, normal peripheral pulses, irregularly irregular Gastrointestinal/Abdominal: Present: normal bowel sounds, nontender, nondistended, soft, no organomegaly Rectal Exam: Present: deferred Back Exam: Present: normal inspection, normal range of motion Extremity Exam: Present: normal inspection, non-tender, normal range of motion, extremity edema Neurological Exam: Present: alert, oriented, normal mood/affect Skin Exam: Present: normal color, warm/dry Lymphatic Exam: Present: no adenopathy ED Progress - Results and Orders Patient's Lab Results:: I have reviewed the patient's lab results. - Vital Signs Patient's Vital Signs:: I have reviewed the patient's vital signs. Vital Signs: Vital Signs 07/01/17 07/01/17 16:32 16:56 Temperature 36.7 C Pulse Rate 97 94 Respiratory 12 Rate Blood Pressure 159/96 158/89 O2 Sat by Pulse 94 Oximetry - EKG EKG: atrial fibrillation - X-Ray X-Ray #1 X-Ray: chest Interpretation: Reviewed by me - Progress/Reassessment Chief Complaint: Dyspnea Plan - Plan Plan: The patient appears to be in congestive heart failure given his shortness of breath, however his hemoglobin has fallen to 8.5 from 9.7. All this could be dilutional from the heart failure we also need to consider this could be an occult GI bleed. His Hemoccult was negative so this could also be a side effect from his recent chemotherapy. As the patient is in chronic atrial fibrillation he'll be admitted to a [facility] bed observationally with ongoing cardiac monitoring and possible further diuresis will be considered. Patient is admitted from the ER in fair condition. Departure Clinical Impression: Type 2 diabetes mellitus Qualifiers: Diabetes mellitus complication status: without complication Diabetes mellitus mcc insulin use: with cashier ticket selling use Qualified Code(s): E11.9 - Type 2 diabetes mellitus without complications; Z79.4 - half-way (current) use of insulin Congestive heart failure (CHF) Qualifiers: Congestive heart failure type: unspecified congestive heart failure type Congestive heart failure chronicity: acute on chronic Qualified Code(s): I50.9 - Heart failure, unspecified - Departure Disposition: [facility] Condition: Fair Referrals: Mehul Johnson MD [Primary Care Provider] -
[2017-07-01 17:16] LABS: Urine Bilirubin Negative (NEGATIVE); Urine Blood 25 /ul (NEGATIVE); Urine Ketone Negative (NEGATIVE); Urine Nitrite Negative (NEGATIVE); Urine Protein 30 mg/dL (NEGATIVE); Urine Specific Gravity 1.015 SP.GR. (1.005-1.030); Urine Urobilinogen Normal (NORMAL)
[2017-07-01 17:30] LABS: Urine Appearance Clear; Urine Color Yellow
[2017-07-01 17:31] LABS: Urine Bacteria 1+; Urine RBC 0-5 /hpf (0-5); Urine WBC TRACE /hpf (0-5)
[2017-07-01 17:32] LABS: Troponin I Less than 0.017 ng/ml (0.00-0.10)
[2017-07-01] MEDS ORDERED: traMADol HCL 50 MG TABLET PO PRN (18:53)
[2017-07-01] MEDS ORDERED: ACETAMINOPHEN 325 MG TABLET PO PRN (20:18)
--- NOTE | 2017-07-01 20:44 | HP ---
<Duy Thomas - Last Filed: 07/02/17 04:15> Chief Complaint - Chief Complaint Date of Service: 07/01/17 Time of Service: 20:26 Chief Complaint: shortness of breath, increased swelling BLE History of Present Illness: 67 years old male adm to the hospital from ER with report of shortness of breath and increasing swelling to BLE, that have gotten progressively worst over the last 10 days. PMH significant for lung cancer currently under going chemotherapy at [facility]. His most recent chemotherapy was . COPD, hypertension, diabetes, chronic A-fib,Thymus cancer (S/p chemo, radiation and surgery), nephrotic syndrome, HDL, renal disease and CHF. pt stated 2 weeks ago he had thoracentesis secondary to large pleural effusion. He had some relief and was able to breath much better in addition to 2L oxygen at nights. Over the past 10 days he had orthopnea, non productive cough, wheezing and swellings of the thighs into feet. Patient was seen at home by home health nurse who did lab work. Pt stated he was called and instructed to go to the ER. In ER Lasix 80mg x1 given, duoneb for shortness of breath. Plan to adm and diuresis while hospitalized. Plan of care discussed with pt and grandson they verbalized understanding and agrees . - Patient's Past Medical History Patient History - Medical: Arthritis, Diabetes Type 2, Renal Disease, Other - nephrotic syndrome Patient History - Cardiac/Respiratory: CHF, COPD - 2L oxygen at nights, Hypertension, Hyperlipidemia, Home O2 Use Patient History - Cancer: Lung, Thyroid, Other - Thymus gland Patient History - Surgical Procedures: Cataracts, Total Hip Replacement - left hip Patient History - Other: None - Family History Mother Family History - Medical: Family History - Cardiac/Respiratory: No pertinent hx Family History - Cancer: No pertinent family hx Father Family History - Medical: History Unknown Family History - Cardiac/Respiratory: History Unknown Family History - Cancer: History Unknown - Social History Living Situations: spouse Abuse History: No History of abuse Psych History: No pertinent hx Smoking Status: Former smoker Have you smoked in the past 12 months: No Do you dip or chew tobacco: No Smoking Start Date: 07/01/65 Smoking Stop Date: 07/01/69 Patient requests Smoking Cessation Consult: No Initiate information on Smoking Cessation: No Alcohol Use: none Drug Use: none - Immunizations Immunizations Up to Date: Yes Hx Pneumococcal Vaccination: Yes History of Influenza Vaccine: Yes Review Of Systems (GEN) - Review of Systems Generalized/Overall Review: Present: No Symptoms Reported EENTM: Present: No Symptoms Reported Respiratory: Present: Cough, Shortness of Breath, Orthopnea, Wheezing Cardiac: Present: Edema Abdominal: Present: No Symptoms Reported Genitourinary: Present: Urgency Musculoskeletal: Present: Joint Pain Neurological: Present: No Symptoms Reported Skin: Present: Rash - between fold of skins at groin Endocrine: Present: No Symptoms Reported Allergies/Adverse Reactions: Allergies Allergy/AdvReac Type Severity Reaction Status Date / Time No Known Allergies Allergy Verified 07/01/17 16:40 Home Medications: HOME MEDICATIONS Simvastatin [Zocor] 20 mg PO HS 06/03/13 [Last Taken Unknown] Irbesartan [Avapro] 300 mg PO DAILY 12/04/14 [Last Taken Unknown] Gabapentin [Neurontin] 300 mg PO BID 09/16/16 [Last Taken Unknown] Budesonide/Formoterol Fumarate [Symbicort 160-4.5 Mcg Inhaler] 2 puff IH BID [Last Taken Unknown] Aspirin [Aspirin EC] 81 mg PO DAILY #30 tablet. 01/03/17 [Last Taken Unknown] Cholecalciferol (Vitamin D3) [Vitamin D3] 5,000 unit PO DAILY #100 tablet [Last Taken Unknown] Acetaminophen [Tylenol] 650 mg PO Q6H PRN 03/26/17 [Last Taken Unknown] Albuterol Sulfate [Albuterol Sulfate 2.5 MG/3 ML] 1.25 mg IH QID 03/26/17 [Last Taken Unknown] Folic Acid 1 mg PO DAILY 03/26/17 [Last Taken Unknown] traMADol HCL [Ultram] 50 mg PO Q4H PRN 03/26/17 [Last Taken Unknown] Amlodipine Besylate 10 mg PO DAILY 07/01/17 [Last Taken Unknown] Dexamethasone 4 mg PO BID 07/01/17 [Last Taken Unknown] Ferrous Sulfate [Iron] 325 mg PO DAILY 07/01/17 [Last Taken Unknown] Hydrochlorothiazide [Hydrodiuril] 25 mg PO DAILY 07/01/17 [Last Taken Unknown] Montelukast Sodium [Singulair] 10 mg PO DAILY 07/01/17 [Last Taken Unknown] Spironolactone [Aldactone] 25 mg PO DAILY 07/01/17 [Last Taken Unknown] Metoprolol Tartrate [Lopressor] 200 mg PO DAILY 07/02/17 [Last Taken Unknown] Exam - Exam Vital Signs: Vital Signs - Last Taken Temp 37.1 C 07/01/17 18:48 Pulse 120 H 07/01/17 18:48 Resp 20 07/01/17 18:48 BP 176/88 07/01/17 18:48 Pulse Ox 92 07/01/17 18:48 Constitutional: Present: Alert, Oriented x3, Cooperative, Well developed, Mild distress, Middle aged, Morbidly obese ENT Exam: Present: normal ENT inspection Eye Exam: bilateral eye: normal inspection Neck: Present: full range of motion Back Exam: Present: normal inspection Breasts: Present: Exam deferred Respiratory: Present: no accessory muscle use, decreased breath sounds, wheezing Cardiovascular/Chest: Present: no chest tenderness, JVD, irregularly irregular, edema Peripheral Pulses: dorsalis-pedis (R): 1+, dorsalis-pedis (L): 1+ Abdomen: Present: Normal bowel sounds, soft, nontender, nondistended /Rectal: Present: Other - retracted penis Extremity: Present: lower extremity edema, pedal edema, slow capillary refill, swelling Skin Exam: Present: warm/dry, skin rash - within skin folds Neurologic: Present: oriented x 3 Appearance: Present: appropriate appearance Eye contact: Present: cooperative Thoughts: Present: normal thought pattern Diagnostic Studies: Laboratory Results pCO2 36.7 mmHg (35.0-48.0) 07/01/17 17:15 pO2 62.0 mmHg (83.0-108.0) L 07/01/17 17:15 HCO3 25.8 mmol/L (21.0-28.0) 07/01/17 17:15 Total CO2 26.9 mmol/L (19.0-24.0) H 07/01/17 17:15 Base Excess 2.0 mmol/L (-2.0-3.0) 07/01/17 17:15 ABG pH 7.46 (7.35-7.45) H 07/01/17 17:15 ABG O2 Sat (Measured) 93.1 % (94.0-98.0) L 07/01/17 17:15 Magnesium 2.0 mg/dL (1.2-2.8) 07/01/17 17:12 Troponin I Less than 0.017 ng/ml (0.00-0.10) 07/01/17 17:12 Urine Color Yellow 07/01/17 17:09 Urine Appearance Clear 07/01/17 17:09 Urine pH 6.0 pH (5.0-7.0) 07/01/17 17:09 Ur Specific Palmer 1.015 SP.GR. (1.005-1.030) 07/01/17 17:09 Urine Protein 30 mg/dL (NEGATIVE) H 07/01/17 17:09 Urine Glucose (UA) Negative mg/dL (NEGATIVE) 07/01/17 17:09 Urine Ketones Negative mg/dL (NEGATIVE) 07/01/17 17:09 Urine Blood 25 /ul (NEGATIVE) H 07/01/17 17:09 Urine Nitrate Negative (NEGATIVE) 07/01/17 17:09 Urine Bilirubin Negative mg/dl (NEGATIVE) 07/01/17 17:09 Prot Sulfosalicylic Acd 1+ mg/dL (0) 07/01/17 17:09 Urine Urobilinogen Normal EU/dl (NORMAL) 07/01/17 17:09 Ur Leukocyte Esterase Negative /ul (NEGATIVE) 07/01/17 17:09 Urine RBC 0-5 /hpf (0-5) 07/01/17 17:09 Urine WBC Trace /hpf (0-5) 07/01/17 17:09 Ur Epithelial Cells None seen /hpf (0-5) 07/01/17 17:09 Urine Bacteria 1+ (NONE) H 07/01/17 17:09 Urine Culture Comments No culture indicated 07/01/17 17:09 Stool Occult Blood Negative 07/01/17 17:14 Assessment/Plan - Narrative Narrative: Acute on chronic CHF exacerbation Lasix 80mg x1 given in ER, will continue with IV Lasix for diuresis continue with home medications Strict I/O Weight pt daily On adm BNP 3604, will continue to monitor Consistent carb, low sodium diet 2D-Echo pending Monitor on telemetry Lung cancer- Most recent chemotherapy was last Pt follow up with oncologist at [facility] Diabetes Consistent carb diet Accu-check AC+HS COPD Pt got duoneb treatment in ER, will continue while admitted continue with home medications Supplement oxygen, pt use 2L oxygen at home at nights and PRN. Chronic A-fib- stable monitor on telemetry Anemia- possible due to hemodilution of CHF exacerbation and chemotherapy On adm hgb 8.5, lower than baseline. Continue with oral iron and folic acid Monitor cbc Code status DNR Dvt ppx: Lovenox GI ppx:Pepcid Time 40 minutes - Assessment/Plan (1) Congestive heart failure (CHF) Problem: Chronic QualifierTitle: Congestive heart failure type: unspecified congestive heart failure type Congestive heart failure chronicity: acute on chronic Qualified Code(s): I50.9 - Heart failure, unspecified (2) Lung cancer Problem: Chronic QualifierTitle: Laterality: right (3) Type 2 diabetes mellitus Problem: Chronic QualifierTitle: Diabetes mellitus complication status: without complication Diabetes mellitus mcc insulin use: with mcc use Qualified Code(s): E11.9 - Type 2 diabetes mellitus without complications; Z79.4 - halfway (current) use of insulin (4) COPD (chronic obstructive pulmonary disease) Problem: Chronic <Richard Saxena - Last Filed: 07/02/17 17:28> History of Present Illness: I suspect the pleural effusion is related to his lung cancer and that he will feel more comfortable after a pleurocentesis. I personally directed all of the care provided by our nurse practitioner hospitalist. Immunizations: IMMUNIZATION HX Immunizations Up to Date Yes History of Influenza Vaccine Yes Hx Pneumococcal Vaccination Yes Exam - Exam Vital Signs: Vital Signs - Last Taken Temp 36.9 C 07/02/17 15:28 Pulse 86 07/02/17 15:28 Resp 40 H 07/02/17 15:28 BP 106/55 07/02/17 15:28 Pulse Ox 96 07/02/17 15:28 Diagnostic Studies: Abnormal Lab Results 07/02/17 07/02/17 Range/Units 05:50 05:50 WBC 10.8 H D (4.0-10.5) K/mm3 RBC 2.54 L (4.7-6.0) M/mm3 Hgb 8.2 L (13.5-18.0) gm/dL Hct 26.7 L (42.0-52.0) % MCV 105.1 H (78-100) fl MCH 32.3 H (27-31) pg MCHC 30.7 L (32-36) g/dl RDW 16.3 H (11.5-14.0) % Immature Gran % (Auto) 0.90 H (0.001-0.429) % Immature Gran # (Auto) 0.10 H (0.000-0.0310) K/mm3 Neutrophils % 83.0 H (42-75.0) % Lymphocytes % 5.4 L (20-51) % Monocytes % 9.9 H (0.0-9) % Neutrophils # 9.0 H (1.3-6.0) K/mm3 Lymphocytes # 0.6 L (1.5-3.5) k/mm3 Monocytes # 1.1 H (0.0-1.0) k/mm3 Carbon Dioxide 32.8 H (24-32.6) mmol/L Random Glucose 118 H (70-110) mg/dL Laboratory Results WBC 10.8 K/mm3 (4.0-10.5) H D 07/02/17 05:50 RBC 2.54 M/mm3 (4.7-6.0) L 07/02/17 05:50 Hgb 8.2 gm/dL (13.5-18.0) L 07/02/17 05:50 Hct 26.7 % (42.0-52.0) L 07/02/17 05:50 MCV 105.1 fl (78-100) H 07/02/17 05:50 MCH 32.3 pg (27-31) H 07/02/17 05:50 MCHC 30.7 g/dl (32-36) L 07/02/17 05:50 RDW 16.3 % (11.5-14.0) H 07/02/17 05:50 Plt Count 292 K/mm3 (150-450) 07/02/17 05:50 MPV 8.9 fl (6.0-9.5) 07/02/17 05:50 Immature Gran % (Auto) 0.90 % (0.001-0.429) H 07/02/17 05:50 Immature Gran # (Auto) 0.10 K/mm3 (0.000-0.0310) H 07/02/17 05:50 Neutrophils % 83.0 % (42-75.0) H 07/02/17 05:50 Lymphocytes % 5.4 % (20-51) L 07/02/17 05:50 Monocytes % 9.9 % (0.0-9) H 07/02/17 05:50 Eosinophils % 0.4 % (0.0-3.0) 07/02/17 05:50 Basophils % 0.4 % (0.0-1.0) 07/02/17 05:50 Nucleated RBC % 0.1 k/mm3 (0-1) 07/02/17 05:50 Neutrophils # 9.0 K/mm3 (1.3-6.0) H 07/02/17 05:50 Lymphocytes # 0.6 k/mm3 (1.5-3.5) L 07/02/17 05:50 Monocytes # 1.1 k/mm3 (0.0-1.0) H 07/02/17 05:50 Eosinophils # 0.0 k/mm3 (0.0-0.7) 07/02/17 05:50 Absolute Basophils 0.0 k/mm3 (0.0-0.1) 07/02/17 05:50 PT 10.7 Seconds (9.4-11.4) 07/02/17 06:00 INR (Anticoag Therapy) 1.03 INR (0.90-1.10) 07/02/17 06:00 pCO2 36.7 mmHg (35.0-48.0) 07/01/17 17:15 pO2 62.0 mmHg (83.0-108.0) L 07/01/17 17:15 HCO3 25.8 mmol/L (21.0-28.0) 07/01/17 17:15 Total CO2 26.9 mmol/L (19.0-24.0) H 07/01/17 17:15 Base Excess 2.0 mmol/L (-2.0-3.0) 07/01/17 17:15 ABG pH 7.46 (7.35-7.45) H 07/01/17 17:15 ABG O2 Sat (Measured) 93.1 % (94.0-98.0) L 07/01/17 17:15 Sodium 141 mmol/L (132-142) 07/02/17 05:50 Plasma Sodium 141 mmol/L (130-142) 07/02/17 05:50 Potassium 3.8 mmol/L (3.4-4.6) 07/02/17 05:50 Chloride 104 mmol/L (97-106) 07/02/17 05:50 Carbon Dioxide 32.8 mmol/L (24-32.6) H 07/02/17 05:50 Anion Gap 8.0 mmol/L (6.8-13.8) 07/02/17 05:50 BUN 15 mg/dL (6-23) 07/02/17 05:50 Creatinine 1.16 mg/dL (0.4-1.4) 07/02/17 05:50 Est GFR (Non-Af Amer) 66 mL/min (60-130) 07/02/17 05:50 BUN/Creatinine Ratio 12.9 (9.0-21.6) 07/02/17 05:50 Random Glucose 118 mg/dL (70-110) H 07/02/17 05:50 Calcium 8.2 mg/dL (7.9-10.9) 07/02/17 05:50 Magnesium 2.0 mg/dL (1.2-2.8) 07/01/17 17:12 Troponin I Less than 0.017 ng/ml (0.00-0.10) 07/01/17 17:12 Urine Color Yellow 07/01/17 17:09 Urine Appearance Clear 07/01/17 17:09 Urine pH 6.0 pH (5.0-7.0) 07/01/17 17:09 Ur Specific Palmer 1.015 SP.GR. (1.005-1.030) 07/01/17 17:09 Urine Protein 30 mg/dL (NEGATIVE) H 07/01/17 17:09 Urine Glucose (UA) Negative mg/dL (NEGATIVE) 07/01/17 17:09 Urine Ketones Negative mg/dL (NEGATIVE) 07/01/17 17:09 Urine Blood 25 /ul (NEGATIVE) H 07/01/17 17:09 Urine Nitrate Negative (NEGATIVE) 07/01/17 17:09 Urine Bilirubin Negative mg/dl (NEGATIVE) 07/01/17 17:09 Prot Sulfosalicylic Acd 1+ mg/dL (0) 07/01/17 17:09 Urine Urobilinogen Normal EU/dl (NORMAL) 07/01/17 17:09 Ur Leukocyte Esterase Negative /ul (NEGATIVE) 07/01/17 17:09 Urine RBC 0-5 /hpf (0-5) 07/01/17 17:09 Urine WBC Trace /hpf (0-5) 07/01/17 17:09 Ur Epithelial Cells None seen /hpf (0-5) 07/01/17 17:09 Urine Bacteria 1+ (NONE) H 07/01/17 17:09 Urine Culture Comments No culture indicated 07/01/17 17:09 Stool Occult Blood Negative 07/01/17 17:14 Miscellaneous Cytology Spec. sent to path. 07/02/17 12:00
[2017-07-01] MEDS: FLUTICASONE/SALMETEROL 14 PUFF DISK.W.DEV IH SCH (21:08)
[2017-07-01] MEDS: ENOXAPARIN SODIUM 40 MG/0.4 ML SYRG SC SCH (21:08)
[2017-07-01] MEDS: SIMVASTATIN 20 MG TABLET PO SCH (21:09)
[2017-07-01] MEDS: GABAPENTIN 300 MG CAPSULE PO SCH (21:09)
[2017-07-01] MEDS: METOPROLOL TARTRATE 100 MG TABLET PO SCH (21:09)
[2017-07-02] MEDS: FAMOTIDINE 20 MG TABLET PO SCH ×2 (00:25→09:41)
[2017-07-02] MEDS: ALBUTEROL SULFATE 2.5 MG/3 ML VIAL.NEB IH SCH ×2 (00:47→06:05)
[2017-07-02] MEDS ORDERED: ALBUTEROL SULFATE 2.5 MG/0.5 ML VIAL.NEB IH ONE (05:55)
[2017-07-02 06:04] LABS: Hematocrit 26.7 % (42.0-52.0); Hemoglobin 8.2 gm/dL (13.5-18.0); Mean Cell Volume 105.1 fl (78-100); Mean Corpuscular Hemoglobin 32.3 pg (27-31); Mean Corpuscular Hgb Conc 30.7 g/dl (32-36); Mean Platelet Volume 8.9 fl (6.0-9.5); NRBC# 0.1 k/mm3 (0-1); Platelet Count 292 K/mm3 (150-450); Red Blood Count 2.54 M/mm3 (4.7-6.0); Red Cell Distribution Width 16.3 % (11.5-14.0); White Blood Count 10.8 K/mm3 (4.0-10.5)
[2017-07-02 06:06] LABS: BUN/Creatinine Ratio 12.9 (9.0-21.6); Calcium * 8.2 mg/dL (7.9-10.9); Carbon Dioxide 32.8 mmol/L (24-32.6); Estimated Creat Clear 77.7; Potassium 3.8 mmol/L (3.4-4.6)
[2017-07-02] MEDS: ALBUTEROL SULFATE 2.5 MG/0.5 ML VIAL.NEB IH SCH ×4 (06:37→19:03)
[2017-07-02] MEDS ORDERED: MONTELUKAST SODIUM 10 MG TABLET PO SCH ×2 (09:00→21:00)
[2017-07-02] MEDS ORDERED: FUROSEMIDE 10 MG/ML VIAL IV SCH (09:00)
[2017-07-02] MEDS: amLODIPine BESYLATE 10 MG TABLET PO SCH (09:41)
[2017-07-02] MEDS: HYDROCHLOROTHIAZIDE 25 MG TABLET PO SCH (09:41)
[2017-07-02] MEDS: CHOLECALCIFEROL 5,000 UNIT TABLET PO SCH (09:41)
[2017-07-02] MEDS: SPIRONOLACTONE 25 MG TABLET PO SCH (09:41)
[2017-07-02] MEDS: FLUTICASONE/SALMETEROL 14 PUFF DISK.W.DEV IH SCH ×2 (09:41→20:51)
[2017-07-02] MEDS: METOPROLOL TARTRATE 100 MG TABLET PO SCH ×2 (09:41→20:51)
[2017-07-02] MEDS: ASPIRIN 81 MG TABLET.DR PO SCH (09:41)
[2017-07-02] MEDS: FOLIC ACID 1 MG TABLET PO SCH (09:41)
[2017-07-02] MEDS: LOSARTAN POTASSIUM 50 MG TABLET PO SCH (09:41)
[2017-07-02] MEDS: FERROUS SULFATE 325 MG TABLET PO SCH (09:41)
[2017-07-02] MEDS: GABAPENTIN 300 MG CAPSULE PO SCH ×2 (09:41→20:52)
[2017-07-02] MEDS: FUROSEMIDE 10 MG/ML VIAL IV SCH (09:42)
[2017-07-02 10:04] LABS: Prothrombin Time (Patient) 10.7 Seconds (9.4-11.4)
[2017-07-02 10:06] LABS: INR 1.03 INR (0.90-1.10)
[2017-07-02] MEDS: ENOXAPARIN SODIUM 40 MG/0.4 ML SYRG SC SCH (19:04)
[2017-07-02] MEDS: SIMVASTATIN 20 MG TABLET PO SCH (20:53)
[2017-07-03 06:05] LABS: Hematocrit 26.4 % (42.0-52.0); Hemoglobin 8.3 gm/dL (13.5-18.0); Mean Cell Volume 103.9 fl (78-100); Mean Corpuscular Hemoglobin 32.7 pg (27-31); Mean Corpuscular Hgb Conc 31.4 g/dl (32-36); Mean Platelet Volume 9.2 fl (6.0-9.5); NRBC# 0.1 k/mm3 (0-1); Neutrophil # 10.1 K/mm3 (1.3-6.0); Platelet Count 283 K/mm3 (150-450); Red Blood Count 2.54 M/mm3 (4.7-6.0); Red Cell Distribution Width 16.3 % (11.5-14.0); White Blood Count 12.4 K/mm3 (4.0-10.5)
[2017-07-03] MEDS: ALBUTEROL SULFATE 2.5 MG/0.5 ML VIAL.NEB IH SCH (06:11)
[2017-07-03 06:28] LABS: Anion Gap 7.6 mmol/L (6.8-13.8); BUN/Creatinine Ratio 12.6 (9.0-21.6); Calcium * 8.4 mg/dL (7.9-10.9); Potassium 3.6 mmol/L (3.4-4.6)
--- NOTE | 2017-07-03 08:41 | PN ---
Subjective - Date and Time Seen Date: 07/02/17 Time: 07:30 Subjective Narrative: SOB about the same. Has had previous right side pleural effusion taps related to his lung cancer. Uses O2 at home, at night all the time, day time prn dyspnea. Objective - Review of Systems Generalized/Overall Review: Reports: No Symptoms Reported EENTM: Reports: No Symptoms Reported Respiratory: Reports: Shortness of Breath Cardiac: Reports: No Symptoms Reported Abdominal: Reports: No Symptoms Reported Genitourinary Symptoms: Reports: No Symptoms Reported Musculoskeletal Complaints: Reports: No Symptoms Reported Neurological: Reports: No Symptoms Reported Skin: Reports: No Symptoms Reported Endocrine: Reports: No Symptoms Reported Misc: All systems neg except as marked - Vitals Vitals: Last Vital Signs Selected Entries 07/02/17 07:25 Temperature 36.5 C Temperature Oral Source Pulse Rate 92 Respiratory 18 Rate Blood Pressure 124/64 Blood Pressure 84 Mean O2 Sat by Pulse 94 Oximetry Oxygen Delivery Room Air Method - Abnormal Lab Findings Abnormal Lab Findings: Abnormal Lab Results 07/03/17 07/03/17 Range/Units 05:55 05:55 WBC 12.4 H (4.0-10.5) K/mm3 RBC 2.54 L (4.7-6.0) M/mm3 Hgb 8.3 L (13.5-18.0) gm/dL Hct 26.4 L (42.0-52.0) % MCV 103.9 H (78-100) fl MCH 32.7 H (27-31) pg MCHC 31.4 L (32-36) g/dl RDW 16.3 H (11.5-14.0) % Immature Gran % (Auto) 1.30 H (0.001-0.429) % Immature Gran # (Auto) 0.16 H (0.000-0.0310) K/mm3 Neutrophils % 81.0 H (42-75.0) % Lymphocytes % 5.0 L (20-51) % Monocytes % 11.8 H (0.0-9) % Neutrophils # 10.1 H (1.3-6.0) K/mm3 Lymphocytes # 0.6 L (1.5-3.5) k/mm3 Monocytes # 1.5 H (0.0-1.0) k/mm3 Carbon Dioxide 34.0 H (24-32.6) mmol/L Random Glucose 124 H (70-110) mg/dL - Exam Constitutional: Present: Alert, Oriented x3, Cooperative, Well developed, No distress, Obese ENT Exam: Present: normal ENT inspection, hearing grossly normal Neck: Present: normal inspection Respiratory: Present: lungs clear, no respiratory distress, other - decreased breath sounds on the right Cardiovascular/Chest: Present: regular rate, rhythm, no murmur Abdomen: Present: Normal bowel sounds, soft, nontender, nondistended, no rebound tenderness, no hepatospenomegaly, no masses, obese Extremity: Present: pedal edema Skin Exam: Present: normal color, warm/dry, no cyanosis Neurologic: Present: alert, oriented x 3 Appearance: Present: appropriate appearance, appropriate insight, neat, no memory impairment Eye contact: Present: cooperative Assessment/Plan Plan Narrative: image guided pleuralcentesis. - Problems/Diagnosis (1) Recurrent right pleural effusion Problem: Acute (2) Congestive heart failure (CHF) Problem: Chronic Qualifiers: Congestive heart failure type: unspecified congestive heart failure type Congestive heart failure chronicity: acute on chronic Qualified Code(s): I50.9 - Heart failure, unspecified (3) Lung cancer Problem: Chronic Qualifiers: Laterality: right
--- NOTE | 2017-07-03 08:49 | DS ---
(1) Recurrent right pleural effusion Problem: Acute (2) Congestive heart failure (CHF) Problem: Chronic Qualifiers: Congestive heart failure type: unspecified congestive heart failure type Congestive heart failure chronicity: acute on chronic Qualified Code(s): I50.9 - Heart failure, unspecified (3) Lung cancer Problem: Chronic Qualifiers: Laterality: right Description of Stay: Given IV lasix while in hospital. Image guided pleuorocentesis yesterday yielded 900 ml fluid without complication. Patient back to baseline and can go home. Procedures Performed: see notes below - Image guided pleurocentesis by radiology yesterday. Discharge Disposition: Home self care Disposition: Home self-care Condition: Fair Discharge Activity: Activity as tolerated Discharge Diet: Consistent carbs, Low salt Referrals: Mehul Johnson MD [Primary Care Provider] - Problem Oriented Discharge Instructions to Patient/Family: Pleural Effusion Additional Patient Instructions (free text): TCM at D/C please. [facility] ongoing, please call and fax discharge information to them. Continue Oxygen at all times when sleeping and as needed when not. Keep followup appt with Dr. Johnson on July 07 Prescriptions (Any new or edited meds): Dexamethasone 4 mg PO BID 1 Days tablet Metoprolol Tartrate [Lopressor] 200 mg PO DAILY #1 tablet Complete Home Medications List: Complete Home Medication List: Simvastatin [Zocor] 20 mg PO HS 06/03/13 Irbesartan [Avapro] 300 mg PO DAILY 12/04/14 Gabapentin [Neurontin] 300 mg PO BID 09/16/16 Budesonide/Formoterol Fumarate [Symbicort 160-4.5 Mcg Inhaler] 2 puff IH BID Aspirin [Aspirin EC] 81 mg PO DAILY #30 tablet. 01/03/17 Cholecalciferol (Vitamin D3) [Vitamin D3] 5,000 unit PO DAILY #100 tablet Acetaminophen [Tylenol] 650 mg PO Q6H PRN 03/26/17 Albuterol Sulfate [Albuterol Sulfate 2.5 MG/3 ML] 1.25 mg IH QID 03/26/17 Folic Acid 1 mg PO DAILY 03/26/17 traMADol HCL [Ultram] 50 mg PO Q4H PRN 03/26/17 Amlodipine Besylate 10 mg PO DAILY 07/01/17 Ferrous Sulfate [Iron] 325 mg PO DAILY 07/01/17 Hydrochlorothiazide [Hydrodiuril] 25 mg PO DAILY 07/01/17 Montelukast Sodium [Singulair] 10 mg PO DAILY 07/01/17 Spironolactone [Aldactone] 25 mg PO DAILY 07/01/17 Dexamethasone 4 mg PO BID 1 Days tablet 07/03/17 Metoprolol Tartrate [Lopressor] 100 mg PO BID tablet 07/03/17 Metoprolol Tartrate [Lopressor] 200 mg PO DAILY #1 tablet 07/03/17
[2017-07-03] MEDS ORDERED: METOPROLOL TARTRATE 100 MG TABLET PO SCH (09:00)
[2017-07-03] MEDS: FERROUS SULFATE 325 MG TABLET PO SCH (09:01)
[2017-07-03] MEDS: LOSARTAN POTASSIUM 50 MG TABLET PO SCH (09:01)
[2017-07-03] MEDS: FOLIC ACID 1 MG TABLET PO SCH (09:01)
[2017-07-03] MEDS: FLUTICASONE/SALMETEROL 14 PUFF DISK.W.DEV IH SCH (09:01)
[2017-07-03] MEDS: amLODIPine BESYLATE 10 MG TABLET PO SCH (09:02)
[2017-07-03] MEDS: ASPIRIN 81 MG TABLET.DR PO SCH (09:02)
[2017-07-03] MEDS: GABAPENTIN 300 MG CAPSULE PO SCH (09:02)
[2017-07-03] MEDS: METOPROLOL TARTRATE 100 MG TABLET PO SCH (09:02)
[2017-07-03] MEDS: SPIRONOLACTONE 25 MG TABLET PO SCH (09:02)
[2017-07-03] MEDS: FAMOTIDINE 20 MG TABLET PO SCH (09:02)
[2017-07-03] MEDS: CHOLECALCIFEROL 5,000 UNIT TABLET PO SCH (09:02)
[2017-07-03] MEDS: HYDROCHLOROTHIAZIDE 25 MG TABLET PO SCH (09:03)
[2017-07-03] MEDS: FUROSEMIDE 10 MG/ML VIAL IV SCH (09:06)
[2017-07-03 10:24] VITALS: BP 104/63
--- NOTE | 2017-07-03 13:26 | ECHO ---
This report is available in the EMR
== END 2017-07-03 11:26 | disposition home health service (06) | DRG 181 ==
LOC: ER 16:29 → MS 17:59 → UNDOADMOB 17:59 → OBSVTOIN 18:57
PROVIDERS: ADMIT Allergy & Immunology; ATTEND Allergy & Immunology
PROC: 4A033R1 Measurement of Arterial Saturation, Peripheral, Percutaneous Approach (ICD-10-PCS; 2017-07-01)
PROC: 0W993ZZ Drainage of Right Pleural Cavity, Percutaneous Approach (ICD-10-PCS; principal; 2017-07-02)
PROC: B246ZZZ Ultrasonography of Right and Left Heart (ICD-10-PCS; 2017-07-02)
DX: C34.90 Malignant neoplasm of unspecified part of unspecified bronchus or lung (principal); J90 Pleural effusion, not elsewhere classified; J91.8 Pleural effusion in other conditions classified elsewhere; J44.9 Chronic obstructive pulmonary disease, unspecified; I10 Essential (primary) hypertension; E11.9 Type 2 diabetes mellitus without complications; E78.5 Hyperlipidemia, unspecified; Z92.21 Personal history of antineoplastic chemotherapy; Z99.81 Dependence on supplemental oxygen; Z85.850 Personal history of malignant neoplasm of thyroid; Z87.891 Personal history of nicotine dependence

== ENCOUNTER 2017-07-27 16:24 | Emergency (ER) | payer MEDICARE, OTHER ==
[2017-07-27] MEDS ORDERED: MORPHINE SULFATE 2 MG/ML DISP.SYRIN IM ONE (17:05)
[2017-07-27] MEDS ORDERED: MORPHINE SULFATE 2 MG/ML DISP.SYRIN ONE (17:06)
--- NOTE | 2017-07-27 17:16 | ERNOTE ---
Dyspnea - Date Date of Service: 07/27/17 - General Presenting Symptoms: other - pain after pleural fluid drainage Time Seen by Provider: 07/27/17 16:28 Source: patient Exam Limitations: no limitations - Immun/Allergies/Home Medications Immunizations: IMMUNIZATION HX Immunizations Up to Date Yes History of Influenza Vaccine Yes Hx Pneumococcal Vaccination Yes Allergies/Adverse Reactions: Allergies No Known Allergies Allergy (Verified 07/01/17 16:40) Home Medications: HOME MEDICATIONS Simvastatin [Zocor] 20 mg PO HS 06/03/13 [Last Taken Unknown] Irbesartan [Avapro] 300 mg PO DAILY 12/04/14 [Last Taken Unknown] Gabapentin [Neurontin] 300 mg PO BID 09/16/16 [Last Taken Unknown] Budesonide/Formoterol Fumarate [Symbicort 160-4.5 Mcg Inhaler] 2 puff IH BID [Last Taken Unknown] Aspirin [Aspirin EC] 81 mg PO DAILY #30 tablet. 01/03/17 [Last Taken Unknown] Cholecalciferol (Vitamin D3) [Vitamin D3] 5,000 unit PO DAILY #100 tablet [Last Taken Unknown] Acetaminophen [Tylenol] 650 mg PO Q6H PRN 03/26/17 [Last Taken Unknown] Albuterol Sulfate [Albuterol Sulfate 2.5 MG/3 ML] 1.25 mg IH QID 03/26/17 [Last Taken Unknown] Folic Acid 1 mg PO DAILY 03/26/17 [Last Taken Unknown] traMADol HCL [Ultram] 50 mg PO Q4H PRN 03/26/17 [Last Taken Unknown] Amlodipine Besylate 10 mg PO DAILY 07/01/17 [Last Taken Unknown] Ferrous Sulfate [Iron] 325 mg PO DAILY 07/01/17 [Last Taken Unknown] Hydrochlorothiazide [Hydrodiuril] 25 mg PO DAILY 07/01/17 [Last Taken Unknown] Montelukast Sodium [Singulair] 10 mg PO DAILY 07/01/17 [Last Taken Unknown] Spironolactone [Aldactone] 25 mg PO DAILY 07/01/17 [Last Taken Unknown] Dexamethasone 4 mg PO BID 1 Days tablet 07/03/17 [Last Taken Unknown] Metoprolol Tartrate [Lopressor] 200 mg PO DAILY #1 tablet 07/03/17 [Last Taken Unknown] Furosemide [Lasix] 80 mg PO DAILY 07/27/17 [Last Taken Unknown] - History of Present Illness Narrative: Patient presents to the ED for pain at the site of pleural fluid drainage. he relates that he had a port placed in his left chest to drain pleural fluid last week at [facility]. This was done by Dr Jones. Today he had fluid drained for the first time. The fluid came out quickly then he had immediate right sided pain at rui poet and pain with breathing. no abdominal pain. No fever. no vomiting. No other CP than at the site with breathing. Pain is sharp and can be severe at times. Severity: moderate Initiating event: Reports: other - pleural fluid drainage Frequency of episodes: Reports: no prior episodes Modifying Factors - (Improves): Reports: nothing Modifying Factors (Worsens): Reports: other - deep breathing Associated Symptoms-Dyspnea: Denies: fever/chills, cough Prior Treatment: Reports: recently seen Review of Systems - Review of Systems Constitutional: Absent: fever Respiratory: Absent: shortness of breath Cardiology: Present: See HPI Gastrointestinal/Abdominal: Absent: abdominal pain Neurological: Absent: weakness - Patient's Past Medical History Patient History - Medical: Arthritis, Diabetes Type 2, Renal Disease, Other Patient History - Cardiac/Respiratory: CHF, COPD, Hypertension, Hyperlipidemia, Home O2 Use Patient History - Cancer: Lung, Thyroid, Other Patient History - Surgical Procedures: Cataracts, Total Hip Replacement Patient History - Other: None - Family History Mother Family History - Medical: Family History - Cardiac/Respiratory: No pertinent hx Family History - Cancer: No pertinent family hx Father Family History - Medical: History Unknown Family History - Cardiac/Respiratory: History Unknown Family History - Cancer: History Unknown - Social History Living Situations: home Abuse History: No History of abuse Psych History: No pertinent hx Smoking Status: Former smoker Alcohol Use: none Drug Use: none - Immunizations Immunizations Up to Date: Yes Hx Pneumococcal Vaccination: Yes History of Influenza Vaccine: Yes Physical Exam - Physical Exam General Appearance: Present: alert, no apparent distress Head Exam: Present: normal inspection, no evidence of injury Eye Exam: Normal inspection: bilateral, PERRL: bilateral Ears, Nose, Throat: Present: normal ENT inspection Neck: Present: normal inspection Respiratory: Present: no respiratory distress, no accessory muscle use, other - diminnidhed bilatereally in the bases. Absent: wheezing Cardiovascular/Chest: Present: regular rate, rhythm, normal peripheral pulses Gastrointestinal/Abdominal: Present: normal bowel sounds, nontender, soft Neurological Exam: Present: alert, normal mood/affect, no motor/sensory deficits Skin Exam: Present: normal color, warm/dry, other - no redness at the site of the device right chest ED Progress - Vital Signs Patient's Vital Signs:: I have reviewed the patient's vital signs. Vital Signs: Vital Signs 07/27/17 07/27/17 16:28 16:44 Temperature 36.9 C 37 C Pulse Rate 79 81 Respiratory 14 24 H Rate Blood Pressure 115/58 115/58 O2 Sat by Pulse 99 100 Oximetry - X-Ray X-Ray #1 X-Ray: chest Interpretation: Interp. by me X-ray Comments: I reviewed images and official radiology report - Progress/Reassessment Chief Complaint: Dyspnea Progress Note-Subjective: 07/27/17 17:[address] Jones. he relates this is normal for the first use of the device. he relates this can last 24 hours. Recommends pain medications and home therapy. Patient has ultram at home so I will have him take that. He feels like going home. i discussed warning signs and reasons to return as well as the need for close f/u. Nothing clinically would suggest ACS, PE or aortic dissection. Departure Clinical Impression: Pleuritic pain - Departure Disposition: Home self-care Condition: Stable Additional Instructions: Rest. Take scheduled Ultram at home for the next 3 days. Call your doctor for a follow- up in the next 2-3 days. Return for fever, trouble breathing or if your condition worsens or changes in any way. Referrals: Mehul Johnson MD [Primary Care Provider] -
[2017-07-27 17:31] VITALS: BP 109/47
== END 2017-07-27 17:28 | disposition home or self-care (01) ==
LOC: ER 16:24
DX: R07.81 Pleurodynia (principal); Z85.118 Personal history of other malignant neoplasm of bronchus and lung; Z85.850 Personal history of malignant neoplasm of thyroid